=== PATIENT | male | born 1985 | race Caucasian/White ===

== ENCOUNTER 2018-11-01 22:01 | Emergency (ER) | payer BC ==
[~2018-11-01] VITALS: Ht 187.9 cm; Wt 87.5 kg
[2018-11-01 22:33] LABS: BILIRUBIN NEGATIVE (NEGATIVE); BLOOD NEGATIVE (NEGATIVE); CLARITY SL CLOUDY (CLEAR); COLOR YELLOW (YELLOW); GLUCOSE NEGATIVE (NEGATIVE); KETONE NEGATIVE (NEGATIVE); LEUKO ESTERASE NEGATIVE (NEGATIVE); NITRITE NEGATIVE (NEGATIVE); PH 7.5 (5.0-9.0)
[2018-11-01 22:44] LABS: RBC 0-2 rbc/hpf (0-2); WBC 0-2 wbc/hpf (0-5)
[2018-11-02] MEDS ORDERED: MEDROL DOSEPAK4 MG PO (00:14)
[2018-11-02] MEDS ORDERED: CYCLOBENZAPRINE10 MG PO (00:14)
[2018-11-02] MEDS ORDERED: MOBIC7.5 MG PO (00:14)
== END 2018-11-02 00:12 | disposition home or self-care (01) ==
LOC: ED 22:01
PROVIDERS: Emergency Medicine
DX: S39.012A Strain of muscle, fascia and tendon of lower back, initial encounter (principal); M51.36 Other intervertebral disc degeneration, lumbar region; F17.200 Nicotine dependence, unspecified, uncomplicated; Z88.0 Allergy status to penicillin; X50.0XXA Overexertion from strenuous movement or load, initial encounter; Y93.89 Activity, other specified; Y92.69 Other specified industrial and construction area as the place of occurrence of the external cause; Y99.9 Unspecified external cause status

== ENCOUNTER 2018-12-08 21:16 | Emergency (ER) | payer BC ==
[~2018-12-08] VITALS: Ht 187.9 cm; Wt 91.2 kg
[~2018-12-08 21:16] MED LIST: CYCLOBENZAPRINE10 MG PO; MEDROL DOSEPAK4 MG PO; MOBIC7.5 MG PO
[2018-12-08] MEDS ORDERED: TRAMADOL HCL50 MG PO (23:01)
== END 2018-12-08 23:40 | disposition home or self-care (01) ==
LOC: ED 21:16
DX: L02.31 Cutaneous abscess of buttock (principal); Z88.0 Allergy status to penicillin

== ENCOUNTER 2018-12-31 00:39 | Emergency (ER) | payer BC ==
[~2018-12-31] VITALS: Ht 187.9 cm; Wt 91.2 kg
[~2018-12-31 00:39] MED LIST changes: +TRAMADOL HCL50 MG PO
[2018-12-31 01:30] LABS: BILIRUBIN NEGATIVE (NEGATIVE); BLOOD NEGATIVE (NEGATIVE); CLARITY CLEAR (CLEAR); COLOR YELLOW (YELLOW); GLUCOSE NEGATIVE (NEGATIVE); KETONE NEGATIVE (NEGATIVE); LEUKO ESTERASE NEGATIVE (NEGATIVE); NITRITE NEGATIVE (NEGATIVE); SPECIFIC GRAVITY 1.025 (1.005-1.030); UROBILINOGEN 0.2 E.U./dl (0.2-1.0)
[2018-12-31 01:38] LABS: RBC 0-2 rbc/hpf (0-2)
[2018-12-31 01:39] LABS: BACTERIA 1+; EPITHELIAL CELLS 0-2; MUCOUS 1+
== END 2018-12-31 02:30 | disposition home or self-care (01) ==
LOC: ED 00:39
PROVIDERS: Emergency Medicine
DX: R11.2 Nausea with vomiting, unspecified (principal); M25.511 Pain in right shoulder; M25.512 Pain in left shoulder; R07.9 Chest pain, unspecified; Z88.0 Allergy status to penicillin; Z79.899 Other long term (current) drug therapy

== ENCOUNTER 2019-03-30 23:49 | Emergency (ER) | payer BC ==
[~2019-03-30] VITALS: Ht 187.9 cm; Wt 47.6 kg
[2019-03-31] MEDS ORDERED: METHOCARBAMOL500 M1 PO (00:15)
[2019-03-31] MEDS ORDERED: MEDROL DOSEPAK4 MG PO (00:15)
[2019-03-31] MEDS ORDERED: NAPROSYN500 MG PO (00:15)
== END 2019-03-31 00:57 | disposition home or self-care (01) ==
LOC: ED 23:49
DX: M54.42 Lumbago with sciatica, left side (principal); G89.29 Other chronic pain; Z88.0 Allergy status to penicillin

== ENCOUNTER 2019-04-11 04:12 | Emergency (ER) | payer BC ==
[~2019-04-11] VITALS: Ht 187.9 cm; Wt 90.7 kg
[~2019-04-11 04:12] MED LIST changes: +METHOCARBAMOL500 M1 PO; +NAPROSYN500 MG PO
== END 2019-04-11 06:15 | disposition home or self-care (01) ==
LOC: ED 04:12
DX: B34.9 Viral infection, unspecified (principal); Z88.0 Allergy status to penicillin

== ENCOUNTER 2022-07-25 13:24 | Emergency (ER) | payer BC ==
[~2022-07-25] VITALS: Ht 187.9 cm; Wt 83.9 kg
== END 2022-07-25 16:28 | disposition home or self-care (01) ==
LOC: ED 13:24
DX: Z00.01 Encounter for general adult medical examination with abnormal findings (principal); Z88.0 Allergy status to penicillin; Z87.891 Personal history of nicotine dependence